=== PATIENT | female | born 1950 | race Caucasian/White ===

== ENCOUNTER → 2019-05-10 13:00 | Oncology outpatient (ONC) | payer MEDICARE, OTHER, SELFPAY ==
[2019-04-18 14:28] VITALS: BP 132/60; PULSE 52; RESP 18; TEMP 36.5; O2SAT 98
--- NOTE | 2019-04-18 15:00 | ONC.CONS ---
History of Present Illness - Data of Consult Consult date: 04/18/19 - Consult Narrative Narrative: Diagnosis: Breast cancer, T2 N0 ER/MN positive, HER2 negative Previous treatment: 1. Lumpectomy and sentinel node biopsy in July 2017 2. Adjuvant CMF for 6 cycles 3. Radiation therapy 4. Adjuvant anastrozole. 5. Bone metastasis discovered in August 2018 treated with Faslodex, Xgeva and ibrance History of present illness: Jesenia Vance is a 68 year old female who is referred for treatment of breast cancer. She lives in [place] normally receives therapy there. She is in the area here for about a month. She notes that she was diagnosed with breast cancer late in 2016 and was treated with surgery followed by CMF and radiation. She was taking anastrozole. After about 6 months, she began to have some back pain that she thought was initially a pulled muscle. Her symptoms persisted and got bad enough that she needed a hospital bed. She is having difficulty moving around. She was seen by a chiropractor who ordered scans. She was found to have compression fractures in the low thoracic spine. She had extensive bony metastasis. She started Faslodex, Xgeva and ibrance in August of this year. She did have some transient cytopenias due to her CD K inhibitor. The dose was reduced to 100 mg daily and she has been tolerating that well. She does have some hot flashes and irritability that she attributes to her hormone therapy. She has been using Effexor which she thinks is helpful. Today, she is feeling well. She denies any new aches or pains. She has not noticed any adenopathy. She has had some mild mouth sores. No fevers or chills. Bowels have been moving normally. Appetite and energy level have been good. She has been gradually increasing her activity level and is working with physical therapy. She tells me that she is due to finish heribrance today. She will have 1 week off and resume in a week. She will be due for CBC on Wednesday. She will be due for injections in 2 weeks. She is planning on returning to [place] early in May. Her past medical history is otherwise notable for melanoma in 2016. She has a history of uterine cancer in 2003. She has a history of ADHD. Social history: She is not . She does not smoke. She exercises regularly. CC: Manny Vargas MD Home Medications and Allergies Home Medications Medication Instructions Recorded Confirmed Type Lactobac no.41-Bifidobact no.7 cap PO 04/18/19 History [Probiotic-10] acyclovir 400 mg PO BID 04/18/19 04/18/19 History arginine (L-arginine) 04/18/19 History ascorbic acid (vitamin C) [Vitamin 500 mg PO DAILY 04/18/19 04/18/19 History C] aspirin 325 mg PO DAILY 04/18/19 04/18/19 History calcium citrate 250 mg PO DAILY 04/18/19 04/18/19 History carisoprodol 350 mg PO TID 04/18/19 04/18/19 History cholecalciferol (vitamin D3) 1,000 unit PO DAILY 04/18/19 04/18/19 History [Vitamin D3] cyanocobalamin (vitamin B-12) mcg 04/18/19 History [Vitamin B-12] docusate sodium mg PO BID PRN 04/18/19 History fexofenadine 180 mg PO DAILY 04/18/19 04/18/19 History fluticasone propionate 1 inh INHALATION Q12H 04/18/19 04/18/19 History lysine 04/18/19 History magnesium 400 mg PO DAILY 04/18/19 04/18/19 History melatonin 5 mg PO BEDTIME PRN 04/18/19 04/18/19 History multivitamin 1 tab PO DAILY 04/18/19 04/18/19 History ondansetron 4 mg PO Q6H PRN 04/18/19 04/18/19 History palbociclib [Ibrance] 100 mg PO DAILY 04/18/19 04/18/19 History ranitidine HCl 150 mg PO BID 04/18/19 04/18/19 History rosuvastatin 5 mg PO DAILY 04/18/19 04/18/19 History venlafaxine 25 mg PO DAILY 04/18/19 04/18/19 History Allergies Allergy/AdvReac Type Severity Reaction Status Date / Time No Known Drug Allergies Allergy Verified 04/18/19 14:27 Review of Systems Constitutional: normal activity level Cardiovascular: no chest pain Respiratory: no shortness of breath Gastrointestinal: no change in appetite, no abdominal pain, no diarrhea Endocrine: hormone therapy Hematologic/Lymphatic: no enlarged lymph nodes Exam Vital signs: Vital Signs Temp Pulse Resp BP Pulse Ox 04/18/19 14:28 97.7 F 52 L 18 132/60 98 Intake and Output 04/17/19 04/18/19 04/18/19 23:59 07:59 15:59 Other: Weight 68.9 kg Patient Weight 04/18/19 23:59 Weight 68.9 kg - Constitutional positive no acute distress, positive average body habitus - Routine HEENT Exam Head: Present: normocephalic, atraumatic Eye: Present: EOMI, PERRL. Absent: conjunctival icterus, scleral injection ENT: Present: mucous membranes moist, oropharynx clear - Routine Neck Exam Present: supple. Absent: lymphadenopathy, thyromegaly - Routine Chest/Breast/Axilla Exam Axillae: Absent: lymphadenopathy - Routine Respiratory Exam Present: Clear to auscultation bilaterally. Absent: rales, wheezes - Routine Cardiovascular Exam Present: RRR, S1, S2. Absent: murmur - Routine Abdominal Exam Present: soft, normoactive bowel sounds. Absent: tenderness, organomegaly, mass - Routine Extremities Exam Absent: cyanosis, clubbing, edema - Routine Back/Spine Exam Back/Spine: Absent: paraspinal tenderness, vertebral tenderness - Routine Skin Exam Present: intact. Absent: petechiae, rash - Routine Neurological Exam Present: alert, oriented X3 - Routine Psychiatric Exam Present: normal affect, normal thought process Assessment and Plan (1) Breast cancer Current visit: Yes Status: Acute 68-year-old woman with metastatic breast cancer. Clinically she seems to be tolerating her current regimen well and appears to be responding. We will continue with her regimen as scheduled. She will be due for blood tests on Wednesday. She will resume ibrance on April 24 assuming that her blood counts are adequate. She will be due for injections on May 08 or . I have not scheduled a follow-up appointment for her as she is scheduled to go back to [place]. I would be happy to see her again in the future should the occasion arise.
[2019-04-24 11:41] LABS: Add Manual Diff / Slide Review NO; Basophils Absolute Auto 0 /uL (0-100); Basophils Percent Auto 1.1 % (0-2); Eosinophils Absolute Auto 0 /uL (0-450); Eosinophils Percent Auto 0.7 % (2-4); Hematocrit 38.2 % (36-46); Hemoglobin 13.3 g/dL (12.0-16.0); Lymphocytes Absolute Auto 800 /uL (1100-4500); Mean Corpuscular HGB Conc 34.8 % (30-36); Mean Corpuscular Hemoglobin 40.2 PG (26-34); Mean Corpuscular Volume 115.6 fL (80-100); Monocytes Absolute Auto 300 /uL (0-900); Monocytes Percent Auto 10.2 % (3-14); Neutrophils Absolute Auto 1400 /uL (1500-7000); Platelet Count 128 X10^3/uL (150-400); Red Cell Distribution Width 14.4 % (11.6-14.8); White Blood Cell Count 2.5 X10^3/uL (4.5-11.0)
[2019-04-24 11:50] LABS: Alanine Aminotransferase 28 IU/L (9-52); Albumin 4.2 g/dL (3.5-5.0); Albumin Globulin Ratio 1.7 (1.0-2.8); Alkaline Phosphatase 51 U/L (38-126); Aspartate Aminotransferase 30 IU/L (14-36); Bilirubin Total 0.4 mg/dL (0.2-1.3); Blood Urea Nitrogen 16 mg/dL (7-17); Calcium 9.2 mg/dL (8.4-10.2); Carbon Dioxide 28 mmol/L (22-32); Chloride 101 mmol/L (98-107); Estimated Glomerular Filt Rate > 60.0 mL/min (>60); Globulin 2.5 g/dL (1.7-4.1); Glucose 99 mg/dL (80-110); HEMOLYSIS < 15 (0-50); Potassium 4.7 mmol/L (3.4-5.1); Sodium 137 mmol/L (137-145); Total Protein 6.7 g/dL (6.3-8.2)
[2019-04-24 11:57] LABS: Macrocytosis 3+
[2019-04-24 12:28] LABS: Carcinoembryonic Antigen 6.8 ng/mL (0.1-3.0)
[2019-04-26 15:08] LABS: CA 15-3 15 U/mL (< 32)
[2019-05-10 13:15] VITALS: BP 133/68; PULSE 53; RESP 20; TEMP 36.4; O2SAT 99
[2019-05-10] MEDS: DENOSUMAB 120 MG/1.7 ML VIAL SUBCUT (13:26)
[2019-05-10] MEDS: FULVESTRANT 250 MG/5 ML SYR 500 MG IM (13:31)
== END ==
DX: C50.511 Malignant neoplasm of lower-outer quadrant of right female breast (principal); C79.51 Secondary malignant neoplasm of bone; Z17.0 Estrogen receptor positive status [ER+]
CPT/HCPCS: 36415; 80053; 82378; 85025; 86300; 96372; 96402; 99204; 99214; J0897; J9395